=== PATIENT | female | born 1995 | race Two or more races ===

== ENCOUNTER 2021-11-27 13:19 | Outpatient (CLI) | payer OTHER | END 2021-11-27 14:48 | disposition home or self-care (01) | LOC: PRENATAL 13:19 | PROVIDERS: ATTEND Obstetrics & Gynecology Maternal & Fetal Medicine | DX: O35.0XX0 Maternal care for (suspected) central nervous system malformation in fetus, not applicable or unspecified (principal) ==

== ENCOUNTER 2022-04-03 13:15 | Inpatient (IN) | payer OTHER ==
[~2022-04-03] VITALS: Ht 149.9 cm; Wt 52.6 kg
[2022-04-13] MEDS ORDERED: PRENATAL CAPLE1 EAC1 PO (00:02)
[2022-04-13] MEDS ORDERED: IRON325 MG PO (00:02)
[2022-04-15] MEDS ORDERED: PRENATAL MULTI1 EAC5 PO (07:01)
== END 2022-04-15 12:45 | disposition home or self-care (01) | DRG 807 ==
LOC: LDR 04-12 22:33 → OB/GYN 04-13 08:00
PROVIDERS: ADMIT Specialist; ATTEND Specialist
PROC: 4A1HXCZ Monitoring of Products of Conception, Cardiac Rate, External Approach (ICD-10-PCS; 2022-04-12)
PROC: 10E0XZZ Delivery of Products of Conception, External Approach (ICD-10-PCS; principal; 2022-04-13)
PROC: 0W8NXZZ Division of Female Perineum, External Approach (ICD-10-PCS; 2022-04-13)
DX: O80 Encounter for full-term uncomplicated delivery (principal); Z37.0 Single live birth; Z3A.39 39 weeks gestation of pregnancy; Z20.822 Contact with and (suspected) exposure to COVID-19